=== PATIENT | female | born 1965 | race Hispanic/Latino ===

== ENCOUNTER → 2023-05-06 | Outpatient (CLI) | payer OTHER | END | disposition home or self-care (01) | LOC: RAH 10:57 | PROVIDERS: ATTEND Family Medicine | DX: R94.31 Abnormal electrocardiogram [ECG] [EKG] (principal); I25.2 Old myocardial infarction; R20.2 Paresthesia of skin; R06.02 Shortness of breath | CPT/HCPCS: 93306 ==

== ENCOUNTER 2023-09-08 06:06 | Observation (INO) | payer OTHER ==
[2023-09-04 10:06] LABS: BASOPHILS # (AUTO) 0.04 K/uL (0.00-0.20); BASOPHILS % (AUTO) 0.5 % (0.0-5.0); EOSINOPHILS # (AUTO) 0.19 K/uL (0.00-0.70); EOSINOPHILS % (AUTO) 2.4 % (0.0-8.0); HEMATOCRIT 37.3 % (36-48); IMMATURE GRANULOCYTE ABSOLUTE 0.03 K/uL (0-1); LYMPHOCYTES # (AUTO) 1.1 K/uL (1.0-4.8); LYMPHOCYTES % (AUTO) 13.1 % (21.0-51.0); MEAN CORPUSCULAR HEMOGLOBIN 29.2 pg (27.0-33.0); MEAN CORPUSCULAR HGB CONC 31.9 g/dL (32.0-36.0); MEAN CORPUSCULAR VOLUME 91.4 fL (79-99); MONOCYTES # (AUTO) 0.6 K/uL (0.1-1.0); MONOCYTES % (AUTO) 7.8 % (3.0-13.0); NEUTROPHILS # (AUTO) 6.1 K/uL (1.8-7.7); NEUTROPHILS % (AUTO) 75.8 % (40.0-77.0); PLATELET COUNT (AUTO) 226 K/uL (130-400); RED BLOOD CELL COUNT(AUTO) 4.08 MIL/uL (4.00-5.50); RED CELL DISTRIBUTION WIDTH 14.6 % (11.0-15.5); WHITE BLOOD COUNT (AUTO) 8.1 K/uL (4.8-10.8)
[2023-09-04 10:06] LABS: APPEARANCE,URINE CLEAR (CLEAR); BILIRUBIN,URINE NEGATIVE (NEGATIVE); COLOR,URINE YELLOW (YELLOW); GLUCOSE, URINE (UA) NEGATIVE (NEGATIVE); KETONES,URINE NEGATIVE (NEGATIVE); LEUKOCYTE ESTERASE ,URINE NEGATIVE Leu/uL (NEGATIVE); NITRATE,URINE NEGATIVE (NEGATIVE); OCCULT BLOOD,URINE NEGATIVE (NEGATIVE); PH,URINE 5.5 (5.0-8.0); PROTEIN,URINE 10 mg/dL (NEGATIVE); UROBILINOGEN,URINE 0.2 mg/dL (0.2-1.0)
[2023-09-04 10:12] LABS: ADD UA MICROSCOPIC YES
[2023-09-04 10:15] LABS: MUCUS,URINE RARE LPF (None Seen); RBC,URINE 0-1 /HPF (0-1); SQUAMOUS EPITHELIAL CELL,UR RARE /HPF (0-2); WBC,URINE 0-1 /HPF (0-1)
[2023-09-04 10:15] LABS: ALBUMIN 3.3 g/dL (3.5-5.0); CREATININE 0.7 mg/dL (0.5-1.5); POTASSIUM 4.1 mmol/L (3.5-5.1)
[2023-09-04 10:33] VITALS: BP 139/58; PULSE 71; RESP 19
[2023-09-04 10:59] LABS: INR <= 0.93 (0.85-1.15); PROTHROMBIN TIME 9.8 SEC (9.6-11.6)
[2023-09-04 11:00] LABS: PARTIAL THROMBOPLASTIN TIME 27.3 SEC (26.3-35.5)
[~2023-09-08] VITALS: Ht 160 cm; Wt 102.0 kg
[2023-09-08] VITALS (31 sets, daily range): BP systolic 90–128; BP diastolic 30–63; PULSE 52–84; RESP 14–18; O2SAT 97–99
[~2023-09-08 06:06] MED LIST: ESCI20TA38 PO; HYDR-4068 PO; IBUP-2077 PO; LEVO88CA4 PO; TRAZ-185 PO
[2023-09-08] MEDS ORDERED: PROPOFOL 10 MG/ML 20ML VIAL IV ONE (06:42)
[2023-09-08] MEDS ORDERED: LIDOCAINE PF 100MG/5ML (2%) SYRINGE 5ML ONE (06:42)
[2023-09-08] MEDS ORDERED: GLYCOPYRROLATE 0.2 MG/ML 5 ML VIAL ONE (06:42)
[2023-09-08] MEDS ORDERED: MIDAZOLAM HCL 1 MG/ML 2ML VIAL ONE (06:42)
[2023-09-08] MEDS ORDERED: ROCURONIUM BROMIDE 10MG/1ML 5ML VL ONE (06:43)
[2023-09-08] MEDS ORDERED: FENTANYL CITRATE PF 50 MCG/1 ML 5ML AMP IV ONE (06:43)
[2023-09-08] MEDS ORDERED: ROPIVACAINE 0.5% 5MG/ML 30ML ONE (06:47)
[2023-09-08] MEDS: LACTATED RINGERS 1000ML 1,000 ML IV ONE (06:59)
[2023-09-08] MEDS: CEFAZOLIN SODIUM 2 GM VIAL IVPB ONE (07:00)
[2023-09-08] MEDS: CEFAZOLIN SODIUM 2 GM VIAL ONE (07:00)
[2023-09-08] MEDS ORDERED: POTASSIUM CHLORIDE 10% ELIXIR 20 MEQ/15 ML UDCUP PO PRN (07:30)
[2023-09-08] MEDS ORDERED: POTASSIUM CHLORIDE 20MEQ/100ML 100 ML IV PRN (07:30)
[2023-09-08] MEDS ORDERED: DiphenhydrAMINE HCL 50 MG/ML VIAL IVP PRN (07:30)
[2023-09-08] MEDS ORDERED: ONDANSETRON 4MG INJ IVP PRN (07:30)
[2023-09-08] MEDS ORDERED: KCL 20 MEQ ERTAB PO PRN (07:30)
[2023-09-08] MEDS ORDERED: CYCLOBENZAPRINE HCL 10 MG TABLET PO PRN (07:30)
[2023-09-08] MEDS: TRANEXAMIC ACID 1000MG/10ML ONE (07:30)
[2023-09-08] MEDS ORDERED: ONDANSETRON 4MG INJ ONE (08:21)
[2023-09-08] MEDS ORDERED: DEXAMETHASONE SOD PHOSPHATE 10MG/ML 1ML VIAL ONE (09:47)
[2023-09-08] MEDS ORDERED: NEOSTIGMINE METHYLSULFATE 1MG/ML IV ONE (10:00)
[2023-09-08] MEDS: MEPERIDINE-PF 25 MG/ML SYG ONE (10:30)
[2023-09-08] MEDS: KETOROLAC 15MG/ML VIAL (15MG/ML) ONE (10:38)
[2023-09-08] MEDS: HYDROMORPHONE 1 MG INJ ONE (13:02)
[2023-09-08] MEDS: KETOROLAC 15MG/ML VIAL (15MG/ML) IV SCH ×2 (13:03→20:58)
[2023-09-08] MEDS: FAMOTIDINE 20MG VIAL IV ONE (13:03)
[2023-09-08] MEDS: 0.9%NACL 1000ML 1,000 ML IV SCH (13:03)
[2023-09-08] MEDS: GABAPENTIN 100 MG CAPSULE PO SCH (13:04)
[2023-09-08] MEDS: POLYETHYLENE GLYCOL 3350 17 GM POWD.PACK PO SCH (13:04)
[2023-09-08] MEDS: DOCUSATE SODIUM 100 MG CAP PO SCH (13:04)
[2023-09-08] MEDS: CEFAZOLIN SODIUM 2 GM VIAL IVPB SCH (14:50)
[2023-09-08] MEDS: HYDROCODONE/ACETAMINOPHEN 5/325 MG TAB PO PRN (14:50)
[2023-09-08] MEDS ORDERED: ARTIFICIAL TEARS 3.5 GM OINTMENT OS PRN (15:00)
[2023-09-08] MEDS: TRAZODONE HCL 50 MG TAB PO SCH (20:58)
[2023-09-09] VITALS (9 sets, daily range): BP systolic 93–125; BP diastolic 38–65; PULSE 71–99; RESP 17–19; O2SAT 99
[2023-09-09] MEDS: HYDROCODONE/ACETAMINOPHEN 5/325 MG TAB PO PRN (03:39)
[2023-09-09 03:52] LABS: HEMATOCRIT 28.5 % (36-48); MEAN CORPUSCULAR HEMOGLOBIN 29.3 pg (27.0-33.0); MEAN CORPUSCULAR HGB CONC 31.9 g/dL (32.0-36.0); MEAN CORPUSCULAR VOLUME 91.6 fL (79-99); RED BLOOD CELL COUNT(AUTO) 3.11 MIL/uL (4.00-5.50); RED CELL DISTRIBUTION WIDTH 14.7 % (11.0-15.5)
[2023-09-09 04:10] LABS: CREATININE 0.7 mg/dL (0.5-1.5); POTASSIUM 3.9 mmol/L (3.5-5.1)
[2023-09-09] MEDS: LEVOTHYROXINE 88 MCG TABLET PO SCH (06:20)
[2023-09-09] MEDS ORDERED: KETOROLAC 15MG/ML VIAL (15MG/ML) IV PRN (07:30)
[2023-09-09] MEDS ORDERED: NON-FORMULARY MEDICATION 1 EACH (Levothyroxine Sodium (Levothyroxine) 88 MCG) PO SCH (07:30)
[2023-09-09] MEDS: ASPIRIN 325MG EC TAB PO SCH (08:26)
[2023-09-09] MEDS: CITALOPRAM 20 MG TABLET PO SCH (08:26)
[2023-09-09] MEDS ORDERED: NON-FORMULARY MEDICATION 1 EACH (Escitalopram Oxalate 20 MG) PO SCH (09:00)
[2023-09-09] MEDS: TRAMADOL HCL 50 MG TABLET PO PRN (11:17)
[2023-09-10] VITALS (8 sets, daily range): BP systolic 94–124; BP diastolic 42–75; PULSE 72–91; RESP 16–20; O2SAT 98–99
[2023-09-10 03:59] LABS: BASOPHILS # (AUTO) 0.02 K/uL (0.00-0.20); BASOPHILS % (AUTO) 0.2 % (0.0-5.0); EOSINOPHILS # (AUTO) 0.07 K/uL (0.00-0.70); EOSINOPHILS % (AUTO) 0.7 % (0.0-8.0); HEMATOCRIT 26.1 % (36-48); IMMATURE GRANULOCYTE ABSOLUTE 0.05 K/uL (0-1); LYMPHOCYTES % (AUTO) 9.6 % (21.0-51.0); MEAN CORPUSCULAR HEMOGLOBIN 29.3 pg (27.0-33.0); MEAN CORPUSCULAR HGB CONC 32.2 g/dL (32.0-36.0); MEAN CORPUSCULAR VOLUME 90.9 fL (79-99); MONOCYTES # (AUTO) 0.9 K/uL (0.1-1.0); MONOCYTES % (AUTO) 8.7 % (3.0-13.0); NEUTROPHILS % (AUTO) 80.3 % (40.0-77.0); PLATELET COUNT (AUTO) 140 K/uL (130-400); RED BLOOD CELL COUNT(AUTO) 2.87 MIL/uL (4.00-5.50); RED CELL DISTRIBUTION WIDTH 14.5 % (11.0-15.5); WHITE BLOOD COUNT (AUTO) 9.9 K/uL (4.8-10.8)
[2023-09-10] MEDS: CALCIUM CARB 500MG PO PRN (14:31)
[2023-09-10] MEDS: FERROUS FUMARATE 324 MG TABLET PO PRN (14:31)
[2023-09-11 03:41] VITALS: BP 112/57; PULSE 88; RESP 18
[2023-09-11 05:14] LABS: BASOPHILS # (AUTO) 0.03 K/uL (0.00-0.20); BASOPHILS % (AUTO) 0.3 % (0.0-5.0); EOSINOPHILS # (AUTO) 0.11 K/uL (0.00-0.70); EOSINOPHILS % (AUTO) 1.1 % (0.0-8.0); HEMATOCRIT 28.5 % (36-48); IMMATURE GRANULOCYTE ABSOLUTE 0.07 K/uL (0-1); LYMPHOCYTES # (AUTO) 1.1 K/uL (1.0-4.8); LYMPHOCYTES % (AUTO) 11.1 % (21.0-51.0); MEAN CORPUSCULAR HEMOGLOBIN 29.2 pg (27.0-33.0); MEAN CORPUSCULAR HGB CONC 31.9 g/dL (32.0-36.0); MEAN CORPUSCULAR VOLUME 91.3 fL (79-99); MONOCYTES # (AUTO) 0.8 K/uL (0.1-1.0); MONOCYTES % (AUTO) 7.5 % (3.0-13.0); NEUTROPHILS # (AUTO) 7.9 K/uL (1.8-7.7); NEUTROPHILS % (AUTO) 79.3 % (40.0-77.0); PLATELET COUNT (AUTO) 160 K/uL (130-400); RED BLOOD CELL COUNT(AUTO) 3.12 MIL/uL (4.00-5.50); RED CELL DISTRIBUTION WIDTH 14.3 % (11.0-15.5)
[2023-09-11] MEDS ORDERED: BISACODYL 10 MG SUPP.RECT RC PRN (07:30)
[2023-09-11 08:30] VITALS: BP 117/56; PULSE 93; RESP 18
[2023-09-11 08:47] VITALS: O2SAT 98
[2023-09-11 11:19] VITALS: BP 106/57; PULSE 96; RESP 16
[2023-09-11] MEDS ORDERED: TRAM50TA4 PO (15:30)
[2023-09-11] MEDS ORDERED: CYCL-309 PO (15:30)
[2023-09-11] MEDS ORDERED: ASPI-891 PO (15:30)
[2023-09-11] MEDS ORDERED: DOCU-116 PO (15:30)
== END 2023-09-11 18:15 | disposition home health service (06) ==
LOC: DAH 06:06 → DAHIP 06:07 → DAH 06:07 → 4CH 11:40
PROVIDERS: ADMIT Student in an Organized Health Care Education/Training Program; ATTEND Student in an Organized Health Care Education/Training Program
DX: M16.11 Unilateral primary osteoarthritis, right hip (principal); M25.551 Pain in right hip; G89.28 Other chronic postprocedural pain; I95.1 Orthostatic hypotension; D62 Acute posthemorrhagic anemia; E03.9 Hypothyroidism, unspecified; Z86.2 Personal history of diseases of the blood and blood-forming organs and certain disorders involving the immune mechanism; Z79.82 Long term (current) use of aspirin; Z90.710 Acquired absence of both cervix and uterus; Z79.899 Other long term (current) drug therapy
CPT/HCPCS: 82040; 80048 ×2; 85025 ×3; 85610; 85730; 87077; 87088; 87186; 86140; 81001; 36415 ×4; 87641; 96376 ×3; 96365; 96375; 73503; 64447; 27130; 73521; 97161; 97530 ×12; 85027; 86850; 86900; 86901; 97116 ×2; G0378 ×74; A4600; A4663; C1776; J7120; J3490 ×4; J3010; J1170; J1100; J2001; J2250; J2704; J2405; J2710; J2175; J2795; J1885 ×4; J0690 ×4; A4649 ×3; G0168; A4930 ×2; A6255; A5120; A4215; A4223; A4222; A4221